=== PATIENT | male | born 1930 | race Two or more races ===

== ENCOUNTER → 2017-07-16 | Outpatient (CLI) | payer OTHER | END | disposition home or self-care (01) | LOC: LAB 12:59 | DX: R79.89 Other specified abnormal findings of blood chemistry (principal) ==

== ENCOUNTER 2017-07-20 08:11 | Outpatient (CLI) | payer OTHER | END 2017-07-20 08:24 | disposition home or self-care (01) | LOC: NUCLEAR 08:11 | DX: I63.011 Cerebral infarction due to thrombosis of right vertebral artery (principal); Z86.73 Personal history of transient ischemic attack (TIA), and cerebral infarction without residual deficits; I63.239 Cerebral infarction due to unspecified occlusion or stenosis of unspecified carotid artery ==

== ENCOUNTER 2017-07-25 13:15 | Outpatient (CLI) | payer OTHER | END 2017-07-25 15:52 | disposition home or self-care (01) | LOC: MRI 13:15 | DX: Z86.73 Personal history of transient ischemic attack (TIA), and cerebral infarction without residual deficits (principal); G30.1 Alzheimer's disease with late onset | CPT/HCPCS: 70551 ==

== ENCOUNTER → 2017-08-15 08:00 | Outpatient (CLI) | payer OTHER | END | disposition home or self-care (01) | LOC: TOM 08:00 | DX: K92.1 Melena (principal); K57.31 Diverticulosis of large intestine without perforation or abscess with bleeding; D50.1 Sideropenic dysphagia ==

== ENCOUNTER 2018-04-30 20:22 | Emergency (ER) | payer OTHER ==
[~2018-04-30] VITALS: Ht 165.1 cm; Wt 68.0 kg
== END 2018-04-30 23:49 | disposition home or self-care (01) ==
LOC: ER 20:22
DX: S00.03XA Contusion of scalp, initial encounter (principal); E11.65 Type 2 diabetes mellitus with hyperglycemia; W01.198A Fall on same level from slipping, tripping and stumbling with subsequent striking against other object, initial encounter; Y93.89 Activity, other specified; Y92.89 Other specified places as the place of occurrence of the external cause; Y99.8 Other external cause status

== ENCOUNTER 2018-08-19 09:45 | Outpatient (CLI) | payer OTHER | END 2018-08-19 17:00 | disposition home or self-care (01) | LOC: TOM 09:45 | DX: R10.31 Right lower quadrant pain (principal); R10.32 Left lower quadrant pain; R19.5 Other fecal abnormalities ==

== ENCOUNTER 2018-12-21 13:09 | Emergency (ER) | payer OTHER ==
[~2018-12-21] VITALS: Ht 170.2 cm; Wt 69.9 kg
[2018-12-21] MEDS ORDERED: NORVASC2.5 M1 (13:35)
[2018-12-21] MEDS ORDERED: GLIPIZIDE5 MG (13:36)
[2018-12-21] MEDS ORDERED: ARICEPT5 MG (13:36)
[2018-12-21] MEDS ORDERED: LIPITOR20 MG (13:36)
[2018-12-21] MEDS ORDERED: ADULT ASPIRIN81 MG (13:37)
== END 2018-12-21 18:36 | disposition home or self-care (01) ==
LOC: ER 13:09
DX: K06.8 Other specified disorders of gingiva and edentulous alveolar ridge (principal); S02.5XXG Fracture of tooth (traumatic), subsequent encounter for fracture with delayed healing; X58.XXXD Exposure to other specified factors, subsequent encounter

== ENCOUNTER 2019-11-21 19:44 | Emergency (ER) | payer OTHER ==
[~2019-11-21] VITALS: Ht 160 cm; Wt 63.5 kg
[~2019-11-21 19:44] MED LIST: ADULT ASPIRIN81 MG; ARICEPT5 MG; GLIPIZIDE5 MG; LIPITOR20 MG; NORVASC2.5 M1
== END 2019-11-21 23:20 | disposition home or self-care (01) ==
LOC: ER 19:44
DX: K29.70 Gastritis, unspecified, without bleeding (principal); K29.80 Duodenitis without bleeding; G30.9 Alzheimer's disease, unspecified; F06.4 Anxiety disorder due to known physiological condition